=== PATIENT | male | born 1980 | race Caucasian/White ===

== ENCOUNTER 2019-12-22 08:59 | Emergency (ER) | payer BC ==
[~2019-12-22] VITALS: Ht 185.4 cm; Wt 93.0 kg
[2019-12-22 09:09] VITALS: BP_SYST 125
[2019-12-22] MEDS ORDERED: DEXTROSE 50% JECT 50 ML DISP.SYRIN ONE (09:44)
[2019-12-22 10:47] LABS: BASOPHILS # (AUTO) 0.1 K/uL (0.0-0.2); BASOPHILS % (AUTO) 0.8 % (0.0-2.0); EOSINOPHILS # (AUTO) 0.1 K/uL (0.0-0.4); HEMATOCRIT 46.4 % (36-54); HEMOGLOBIN 15.9 g/dL (14.0-18.0); LYMPHOCYTES # (AUTO) 2.1 K/uL (1.0-5.5); LYMPHOCYTES % (AUTO) 31.5 % (20.5-51.5); MEAN CORPUSCULAR HEMOGLOBIN 31 pg (27-31); MEAN CORPUSCULAR HGB CONC 34 % (32-36); MEAN CORPUSCULAR VOLUME 91 fL (79.0-98.0); MONOCYTES # (AUTO) 0.7 K/uL (0.0-1.0); NEUTROPHILS # (AUTO) 3.6 K/uL (1.8-7.7); NEUTROPHILS % (AUTO) 55.7 % (40.0-70.0); PLATELET COUNT (AUTO) 255 K/uL (130-430); RED BLOOD CELL COUNT(AUTO) 5.08 MIL/uL (4.2-6.2); RED CELL DISTRIBUTION WIDTH 13.4 % (9.0-15.0); WHITE BLOOD COUNT (AUTO) 6.5 K/uL (4.8-10.8)
[2019-12-22 11:01] LABS: CALCIUM 8.3 mg/dL (8.4-11.0); CREATININE 1.19 mg/dL (0.55-1.30); POTASSIUM 4.3 mmol/L (3.5-5.1)
[2019-12-22 11:15] LABS: ALBUMIN 3.7 g/dL (3.4-4.8); TOTAL BILIRUBIN 0.8 mg/dL (0.0-1.0)
[2019-12-22 11:22] LABS: PROTHROMBIN TIME 9.9 SECS (9.5-12.5)
[2019-12-22] MEDS ORDERED: RIVAROXABAN 15 MG TABLET PO ONE (11:30)
[2019-12-22 12:09] VITALS: BP_SYST 133
== END 2019-12-22 12:09 | disposition home or self-care (01) ==
LOC: SED 08:59
DX: I82.491 Acute embolism and thrombosis of other specified deep vein of right lower extremity (principal)
CPT/HCPCS: 36415; 80053; 85025; 85610-TC; 85730-TC; 93971; 99284

== ENCOUNTER 2020-09-24 12:10 | Emergency (ER) | payer BC ==
[~2020-09-24] VITALS: Ht 185.4 cm; Wt 98.9 kg
[2020-09-24 12:25] VITALS: BP_SYST 171
[2020-09-24] MEDS ORDERED: KETOROLAC TROMETHAMINE 60 MG/2 ML VIAL IM ONE (12:45)
[2020-09-24 13:43] LABS: BASOPHILS # (AUTO) 0.1 K/uL (0.0-0.2); BASOPHILS % (AUTO) 0.8 % (0.0-2.0); EOSINOPHILS % (AUTO) 0.1 % (0.0-4.0); HEMATOCRIT 48.8 % (36-54); HEMOGLOBIN 16.5 g/dL (14.0-18.0); LYMPHOCYTES # (AUTO) 1.1 K/uL (1.0-5.5); MEAN CORPUSCULAR HEMOGLOBIN 32 pg (27-31); MEAN CORPUSCULAR HGB CONC 34 % (32-36); MEAN CORPUSCULAR VOLUME 94 fL (79.0-98.0); MONOCYTES # (AUTO) 0.6 K/uL (0.0-1.0); MONOCYTES % (AUTO) 5.8 % (1.7-9.3); NEUTROPHILS # (AUTO) 9.3 K/uL (1.8-7.7); NEUTROPHILS % (AUTO) 83.3 % (40.0-70.0); PLATELET COUNT (AUTO) 271 K/uL (130-430); RED BLOOD CELL COUNT(AUTO) 5.22 MIL/uL (4.2-6.2); RED CELL DISTRIBUTION WIDTH 14.5 % (9.0-15.0); WHITE BLOOD COUNT (AUTO) 11.2 K/uL (4.8-10.8)
[2020-09-24 13:45] LABS: ANION GAP 8 (5-15); CALCIUM 9.5 mg/dL (8.4-11.0); CHLORIDE 101 mmol/L (98-107); GLUCOSE 93 mg/dL (70-99); POTASSIUM 4.9 mmol/L (3.5-5.1); SODIUM SERUM 137 mmol/L (136-145); UREA NITROGEN, BLOOD 11 mg/dL (8-21)
[2020-09-24 13:46] LABS: CREATININE 1.11 mg/dL (0.55-1.30); GFR AFRICAN AMERICAN 94 mL/min (>90)
[2020-09-24 13:52] LABS: ALANINE AMINOTRANSFERASE 64 U/L (12-78); ALBUMIN 3.9 g/dL (3.4-4.8); ASPARTATE AMINOTRANSFERASE 44 U/L (10-37); TOTAL BILIRUBIN 0.8 mg/dL (0.0-1.0); URIC ACID 4.9 mg/dL (2.4-7.0)
[2020-09-24 13:58] LABS: INR 1.1 (0.80-1.20); PROTHROMBIN TIME 11.5 SECS (9.5-12.5)
[2020-09-24 14:06] LABS: C-REACTIVE PROTEIN QUANT < 0.2 mg/dL (0-0.5)
[2020-09-24 15:07] LABS: ERYTHROCYTE SEDIMENTATION RATE 1 MM/HR (0-15)
[2020-09-24 15:30] VITALS: BP_SYST 139
== END 2020-09-24 15:30 | disposition home or self-care (01) ==
LOC: SED 12:10
DX: M79.672 Pain in left foot (principal)
CPT/HCPCS: 36415; 73630; 80053; 84550; 85025; 85610; 85651; 85730; 86140; 93971; 96372; 99285; J1885

== ENCOUNTER 2021-05-28 12:59 | Emergency (ER) | payer BC, OTHER ==
[~2021-05-28] VITALS: Ht 185.4 cm; Wt 96.2 kg
[2021-05-28 13:12] VITALS: BP_SYST 127
[2021-05-28] MEDS ORDERED: IBUP-1971 PO (13:54)
[2021-05-28] MEDS ORDERED: HYDR-3917 PO (13:54)
[2021-05-28 14:31] VITALS: BP_SYST 133
== END 2021-05-28 14:30 | disposition home or self-care (01) ==
LOC: SED 12:59
DX: S52.041A Displaced fracture of coronoid process of right ulna, initial encounter for closed fracture (principal); W10.9XXA Fall (on) (from) unspecified stairs and steps, initial encounter; Y93.89 Activity, other specified; Y92.89 Other specified places as the place of occurrence of the external cause; Y99.8 Other external cause status
CPT/HCPCS: 99283